=== PATIENT | female | born 1940 ===

== ENCOUNTER 2018-03-26 19:40 | Emergency (ER) | payer MEDICARE, OTHER ==
[~2018-03-26] VITALS: Ht 154.9 cm; Wt 58.1 kg
[~2018-03-26 19:40] MED LIST: AMLO5 PO; ARTTEAOPSO; ASPI325EC PO; ASPI81CH; BENA20; BENAML20/5; BENAZEPRIL PO; CILO50 PO; CLOP75; DIAZ5 PO; FEXO180; HYDACE5 PO; LATA.005SO; LEVSOD25 PO; LEVSOD75; LEVSOD75 PO; LORA.5 PO; LORA2 PO; MELA3 PO; MULTI VITAMIN1 EACH PO; SIMV40 PO; Stool Softener100 MG PO; VENL75ER; VENL75ER PO; ZOLP10
[2018-03-26 20:20] LABS: BASOPHILS ABSOLUTE AUTO 0.04 K/mm3 (0.00-0.23); BASOPHILS PERCENT AUTO 0 % (0-2); EOSINOPHILS ABSOLUTE AUTO 0.11 K/mm3 (0.00-0.68); EOSINOPHILS PERCENT AUTO 1 % (0-6); IMMATURE GRAN ABSOLUTE AUTO 0.03 K/mm3 (0.00-0.10); IMMATURE GRAN PERCENT AUTO 0 % (0-1); LYMPHOCYTES ABSOLUTE AUTO 2.86 K/mm3 (0.84-5.20); LYMPHOCYTES PERCENT AUTO 29 % (21-46); MONOCYTES ABSOLUTE AUTO 0.53 K/mm3 (0.16-1.47); MONOCYTES PERCENT AUTO 5 % (4-13); Mean Corpuscular HGB 27.8 pg (26.0-34.0); Mean Corpuscular HGB Conc 31.6 g/dL (31.5-36.5); Mean Corpuscular Volume 88 fL (80-100); Mean Platelet Volume 8.7 fL (9.1-12.4); NEUTROPHILS ABSOLUTE AUTO 6.26 K/mm3 (1.96-9.15); NEUTROPHILS PERCENT AUTO 64 % (41-73); Platelet Count 350 K/mm3 (150-400); RDW Coefficient Variation 14.2 % (11.7-14.2); RDW Standard Deviation 45.7 fL (35.1-46.3); Red Blood Cell Count 2.16 M/mm3 (3.80-5.20); White Blood Cell Count 9.83 K/mm3 (4.00-11.30)
[2018-03-26 20:37] LABS: Albumin, Blood 2.8 g/dL (3.4-5.0); Albumin/Globulin Ratio 0.8 (0.8-1.8); Bilirubin, Total 0.2 mg/dL (0.1-1.0); Bun/Creatinine Ratio 46.5 (12.0-20.0); Calcium, Blood 8.7 mg/dL (8.5-10.1); Creatinine, Blood 0.99 mg/dL (0.40-1.00); Globulin, Blood 3.3 g/dL (2.2-4.0); Potassium, Blood 4.2 mmol/L (3.5-5.5); Total Protein, Blood 6.1 g/dL (6.4-8.2)
[2018-03-26 21:56] LABS: International Normalized Ratio 1.1; Prothrombin Time Results 11.3 Sec (9.7-11.5)
== END 2018-03-26 23:58 | disposition short-term general hospital (02) ==
LOC: ER 19:40
PROVIDERS: Emergency Medicine
DX: K92.2 Gastrointestinal hemorrhage, unspecified (principal); D64.9 Anemia, unspecified; I10 Essential (primary) hypertension; E78.00 Pure hypercholesterolemia, unspecified; F32.9 Major depressive disorder, single episode, unspecified; E03.9 Hypothyroidism, unspecified; F17.200 Nicotine dependence, unspecified, uncomplicated; Z88.5 Allergy status to narcotic agent; Z88.8 Allergy status to other drugs, medicaments and biological substances; Z79.899 Other long term (current) drug therapy; Z79.82 Long term (current) use of aspirin
CPT/HCPCS: 36415; 36430; 80053; 82272; 85025; 85610; 85730; 86850; 86900; 86901; 86923; 93005; 93010; 96365; 96375; 96376; 99285; C9113; J7030; J7050; P9016

== ENCOUNTER 2018-12-17 20:06 | Emergency (ER) | payer MEDICARE, OTHER ==
[~2018-12-17] VITALS: Ht 157.5 cm; Wt 54.4 kg
== END 2018-12-17 22:13 | disposition home or self-care (01) ==
LOC: ER 20:06
DX: S43.005A Unspecified dislocation of left shoulder joint, initial encounter (principal); W01.0XXA Fall on same level from slipping, tripping and stumbling without subsequent striking against object, initial encounter; Z88.5 Allergy status to narcotic agent; Z88.8 Allergy status to other drugs, medicaments and biological substances; Z79.899 Other long term (current) drug therapy; Z79.82 Long term (current) use of aspirin; I10 Essential (primary) hypertension; E03.9 Hypothyroidism, unspecified; E78.00 Pure hypercholesterolemia, unspecified
CPT/HCPCS: 23650; 73020; 73030; 99152; 99283-25; J7030

== ENCOUNTER 2018-12-29 08:08 | Emergency (ER) | payer MEDICARE, OTHER ==
[~2018-12-29] VITALS: Ht 157.5 cm; Wt 59.0 kg
[2018-12-29] MEDS ORDERED: Norco 5-325 Ta1 EACH PO (08:56)
== END 2018-12-29 09:15 | disposition home or self-care (01) ==
LOC: ER 08:08
DX: M25.512 Pain in left shoulder (principal); I10 Essential (primary) hypertension; F32.9 Major depressive disorder, single episode, unspecified; E03.9 Hypothyroidism, unspecified; Z79.899 Other long term (current) drug therapy; Z88.5 Allergy status to narcotic agent; Z87.891 Personal history of nicotine dependence
CPT/HCPCS: 73030; 99283-25

== ENCOUNTER 2019-03-09 10:07 | Day surgery (SDC) | payer MEDICARE, OTHER ==
[~2019-03-09] VITALS: Ht 160 cm; Wt 61.0 kg
[~2019-03-09 10:07] MED LIST changes: +B-STRESS CAP2000 MCG PO; +BENA20 PO; +CHOL10002 PO; +CILO100 PO; +CLOP75 PO; +Cardizem LA180 MG PO; +LINZESS72 MCG PO; +LO-DOSE ASPIRIN81 MG PO; +MIRALAX17 GM PO; +MIRT15ST PO; +Norco 5-325 Ta1 EACH PO; +TRAM50 PO; +Venlafaxine HC100 MG PO
--- NOTE | 2019-03-09 14:23 | NUR ---
PT TRANSFERED TO BY THIS NURSE. PT ABLE TO ANSWER QUESTIONS APPROPRIALTY-HOWEVER REMAINS DROWSEY. WILL CONTINUE TO MONITOR.
--- NOTE | 2019-03-09 14:56 | NUR ---
GROIN SITE STABLE GROIN SITE AT 1455 AFTER 20 MINUTES OF MANUAL HOLD BY DECEMBER MARYLOU.
--- NOTE | 2019-03-09 16:00 | NUR ---
Ronnie arrived from [facility] at 1545 and recieved report from Jaz BUSTILLOS. She is supine in bed . She is alert and oriented and is able to communicate her needs. Her speech is slurred r/t past stroke. VSS . She is in SR in the 80-90's. She has 2+ pulses in LLE and doppler to right. Her right groin site is C/D/I no swelling or oozing. She may be discharged at 2000 tonite.
--- NOTE | 2019-03-09 18:25 | NUR ---
Patient has awaken from nap. She is sitting up at 15 degrees eating finger food dinner and drinking coffee. Right groin site WNL's and C/D/I and no oozing or hematoma. VSS.
--- NOTE | 2019-03-09 19:15 | NUR ---
ASSUMED CARE PT IN BED, ALERT AND ORIENTED. S/P LEFT PERIPHERAL VIA RT GROIN ACCESS. DOPPLER PULSE TO RT PT/DP AND PALPABLE TO RT FOOT. DISCHARGE PLANNED FOR 1999, CALL OUT TO [facility] [place] FOR RIDE. RT GROIN SITE STABLE, SOFT AND NONTENDER WITH DONOVAN HEMOSTATIC DRESSING IN PLACE. NS AT 100ML/HR WILL STOP PRIOR TO DISCHARGE.
--- NOTE | 2019-03-09 20:12 | NUR ---
DISCHARGE DISCHARGE INSTRUCTIONS REVIEWED, ALL QUESTIONS ANSWERED AND PT'S FRIEND HERE FOR RIDE. CALL OUT TO DR GLEASON TO DETERMINE WHEN TO RESTART PLAVIX AND ASA AND RELAYED TO PT TO RESTART TOMORROW. DISCHARGE INSTRUCTIONS IN HAND, PT ESCORTED OUT IN WHEELCHAIR AND INTO CAR.
[2019-03-22] MEDS ORDERED: Cilostazol50 MG PO (14:03)
[2019-03-22] MEDS ORDERED: FERSU300 PO (14:03)
[2019-03-22] MEDS ORDERED: MIRALAX17 GM PO (14:04)
== END 2019-03-09 20:10 | disposition home or self-care (01) ==
LOC: MHTC 10:07 → ICUE 14:53 → MHTC 20:10
DX: I70.223 Atherosclerosis of native arteries of extremities with rest pain, bilateral legs (principal); I70.0 Atherosclerosis of aorta; I70.1 Atherosclerosis of renal artery; I70.8 Atherosclerosis of other arteries; K55.1 Chronic vascular disorders of intestine
CPT/HCPCS: 37220; 37225; 75625; 75716; 75774; 85347; 99152; 99153; C1714; C1725; C1769; C1884; C1887; C1894; C2623; J1644; J2250; J3010; J7030; Q9967

== ENCOUNTER 2019-03-23 09:55 | Day surgery (SDC) | payer MEDICARE, OTHER ==
[~2019-03-23] VITALS: Ht 149.9 cm; Wt 62.3 kg
[~2019-03-23 09:55] MED LIST changes: +Cilostazol50 MG PO; +FERSU300 PO
--- NOTE | 2019-03-23 15:56 | NUR ---
PT ACT 169, SHEATH TO BE PULLED BY JAIRO WOODS RN STANDBY. PT SUPINE, SLEEPING ON/OFF. SITE STABLE. VS WNL. REPORT GIVEN
--- NOTE | 2019-03-23 17:17 | NUR ---
INITIAL ASSESSMENT PATIENT ARRIVED ON GURNEY FROM [facility]PAIR [facility] AT 1710, ACCOMPANIED BY 2 REPAIR CAMERAMAN RNS. PATIENT ALERT AND ORIENTED X 4, HOWEVER APPEARS FORGETFUL AT TIMES. PATIENT R[place]-SPARKS. PATIENT REPORTS N/T IN HANDS AND STATES THAT, THAT IS NOT TYPICAL FOR HER. PATIENT AFEBRILE. PATIENT DENIES ANY PAIN OR DISCOMFORT AT THIS TIME. PATIENT SATTING 90% AND GREATER ON RA. LUNGS CLEAR THROUGHOUT. PATIENT IN SR WITH OCCASIONAL PVCS, HR IN THE 80S. BP STABLE. RADIAL AND DORSAL PEDIS PULSES 2+ IN STRENGTH. TIBIAL PULSES 1+ IN STRENGTH. EXTREMITIES ARE COOL AND PINK. ABDOMEN MODERATELY DISTENDED, SOFT, NONTENDER, WITH NORMOACTIVE BS. PATIENT STATES LAST BM WAS YESTERDAY. WNL. PATIENT HAS SCATTERED BRUISES NOTED T/ O BODY. LEFT FEMORAL ACCESS SITE COVERED WITH DONOVAN AND TEGADERM DRESSING. NO BLEEDING, BRUISING OR HEMATOMA NOTED. SITE SOFT TO PALPATION. IV IN R WRIST FLUSHED AND SALINE LOCKED. PATIENT ORIENTED TO UNIT, ROOM AND CALL SYSTEM. BED LOW AND CALL LIGHT IN REACH. WILL CONTINUE TO MONITOR FREQUENTLY T/O SHIFT.
--- NOTE | 2019-03-23 18:46 | NUR ---
SHIFT SUMMARY PATIENT HAS SLEPT ON AND OFF SINCE COMING TO UNIT. PATIENT REMAINED ALERT AND ORIENTED, FORGETFUL AT TIMES. PATIENT REMAINS AFEBRILE. PATIENT HAS HAD NO COMPLAINTS OF PAIN OR DISCOMFORT. PATIENT HAS REMAINED SATTING 90% AND GREATER ON RA. LUNGS CLEAR T/O. PATIENT HAS REMAINED IN SR WITH OCCASIONAL PVCS. HR IN THE 80S, BP STABLE. RADIAL AND DORSAL PULSES REMAIN 2+. PEDAL PULSES REMAIN 1+ IN STRENGTH. NO BM OR VOID SINCE ARRIVING TO UNIT. NO CHANGE TO SKIN. LEFT FEMORAL SITE ASSESSED AT EACH NURSE ROUNDING. SITE REMAINS STABLE AND WNL- NO BLEEDING, BRUISING, OR HEMATOMA NOTED. SITE IS STABLE TO PALPATION. PER DR. GLEASON, AT 2000 PATIENT CAN START TO MOVE AROUND IN BED. AT 2099, PATIENT CAN GET UP AND OUT OF BED AND MOVE AROUND. IF SITE REMAINS STABLE WHEN GETS OUT OF BED AND MOVES AROUND THEN PATIENT TO BE DISCHARGED HOME. RECEIVED REPORT THAT PATIENT'S DAUGHTER WILL BE HERE AT 2000 AND WILL BE TAKING PATIENT HOME WHEN DC'D. NO COMPLAINTS OF PAIN AT THIS TIME. BED LOW, CALL LIGHT IN REACH. REPORT WILL BE GIVEN TO ONCOMING MECHANICAL DRAWING TEACHER NURSE SHORTLY.
--- NOTE | 2019-03-23 21:24 | NUR ---
DISCHARGE HOME PT UP TO CHAIR AT BEDSIDE WITHOUT DIFFICULTY. LEFT FEMORAL GROIN ACCESS SITE REMAINS STABLE. DRESSING IN PLACE, SITE IS SOFT, NONTENDER, NO HEMATOMA OR BLEEDING NOTED. VITAL SIGNS STABLE. PT VERBALIZED UNDERSTANDING OF ALL DISCHARGE INFORMATION. PT DAUGHTER HERE TO TAKE PT HOME. ALL BELONGINGS TAKEN WITH PT. PT DISCHARGED VIA WHEEL CHAIR AT 2124.
== END 2019-03-23 21:25 | disposition home or self-care (01) ==
LOC: MHTC 09:55 → ICUW 15:01 → MHTC 21:25
DX: I73.9 Peripheral vascular disease, unspecified (principal)
CPT/HCPCS: 37221; 37225; 75625; 75716; 75774; 85347; 99152; 99153; C1714; C1769; C1876; C1884; C1887; C1894; C2623; J0360; J1644; J2250; J3010; J7030; Q9967